=== PATIENT | male | born 2000 | race Hispanic/Latino ===

== ENCOUNTER 2019-03-15 19:57 | Emergency (ER) | payer OTHER ==
[2019-03-15] MEDS ORDERED: IBUPROFEN 600 MG TABLET ONE (20:22)
== END 2019-03-15 21:01 | disposition home or self-care (01) ==
LOC: EDH 19:57
DX: S86.912A Strain of unspecified muscle(s) and tendon(s) at lower leg level, left leg, initial encounter (principal); X58.XXXA Exposure to other specified factors, initial encounter; Y93.02 Activity, running; Y92.89 Other specified places as the place of occurrence of the external cause; Y99.8 Other external cause status
CPT/HCPCS: 73590

== ENCOUNTER 2023-01-15 03:27 | Emergency (ER) | payer OTHER ==
[~2023-01-15] VITALS: Ht 175.3 cm; Wt 161.0 kg
[2023-01-15] MEDS ORDERED: TETANUS/DIPHTHERIA TOXOID [ADULT] 0.5 ML VIAL IM ONE (06:30)
== END 2023-01-15 06:48 | disposition home or self-care (01) ==
LOC: EDH 03:27
DX: S61.412A Laceration without foreign body of left hand, initial encounter (principal); Z90.49 Acquired absence of other specified parts of digestive tract; W45.8XXA Other foreign body or object entering through skin, initial encounter; Y93.89 Activity, other specified; Y92.89 Other specified places as the place of occurrence of the external cause; Y99.8 Other external cause status
CPT/HCPCS: 12002; 90471; 90714